=== PATIENT | male | born 1990 | race Caucasian/White ===

== ENCOUNTER 2020-11-16 22:12 | Emergency (ER) | payer OTHER ==
[2020-11-16 22:21] VITALS: BP 147/88; PULSE 104; TEMP 98.9; BMI 32.5
[2020-11-16] MEDS ORDERED: SODIUM CHLORIDE 0.9% 500 ML INFUS.BAG IV ONE (23:09)
[2020-11-16] MEDS ORDERED: LIDOCAINE VISCOUS 2% ORAL/TOP 20 ML UNIT-DOSE CUP MM ONE (23:20)
[2020-11-16] MEDS ORDERED: BUPIVACAINE 0.5% /EPI 1:200,000 10 ML VIAL INF ONE (23:22)
[2020-11-16] MEDS ORDERED: LIDOCAINE VISCOUS 2% ORAL/TOP 20 ML UNIT-DOSE CUP ONE (23:26)
[2020-11-16 23:33] LABS: BASO % 1.5 % (0-2.0); EOS % 1.2 % (0-4.5); HEMATOCRIT 38.5 % (35.4-49); HEMOGLOBIN 12.8 GM/dL (11.7-16.9); LYMPH % 39.9 % (8-40); MCH 28.2 pg (25.7-33.7); MCHC 33.3 g/dl (32.0-35.9); MEAN CELL VOLUME 84.6 fl (80-96); MEAN PLT VOLUME 7.8 fl (7.5-11.1); MONO % 6.8 % (3.8-10.2); NEUT % 50.6 % (42.8-82.8); PLATELET COUNT 287 10^3/uL (134-434); RBC 4.56 M/mm3 (4.00-5.60); RDW 15.3 % (11.9-15.9)
[2020-11-16] MEDS ORDERED: BUPIVACAINE HCL/PF 0.5% (5MG/ML) 10 ML VIAL ONE (23:37)
[2020-11-16] MEDS ORDERED: BUPIVACAINE HCL 0.25% 125 MG/50 ML VIAL INF ONE (23:37)
[2020-11-16] MEDS ORDERED: AMPICILLIN NA/SULBACTAM NA 3 GM in SODIUM CHLORIDE 100 ML IVPB ONE (23:43)
[2020-11-16] MEDS ORDERED: AMPICILLIN NA/SULBACTAM NA 1.5 GM in SODIUM CHLORIDE 100 ML IVPB ONE (23:45)
[2020-11-16 23:52] LABS: CHLORIDE 110 mmol/L (98-107); SODIUM 138 mmol/L (136-145)
[2020-11-16 23:54] LABS: CALCIUM 8.3 mg/dL (8.5-10.1)
[2020-11-16 23:55] LABS: ALBUMIN 3.4 g/dl (3.4-5.0); BLOOD UREA NITROGEN 13.7 mg/dL (7-18); CO2 25 mmol/L (21-32); GLUCOSE,RANDOM 90 mg/dL (74-106)
[2020-11-16 23:58] LABS: CREATININE 0.8 mg/dL (0.55-1.3); SGOT/AST 61 U/L (15-37); SGPT/ALT 32 U/L (13-61)
[2020-11-16 23:59] LABS: BILIRUBIN,TOTAL 0.3 mg/dL (0.2-1)
[2020-11-17 00:01] LABS: ALK PHOS 79 U/L (45-117)
[2020-11-17 01:56] LABS: ANION GAP 4 MMOL/L (8-16)
== END 2020-11-17 00:37 | disposition home or self-care (01) ==
LOC: JER 22:12
DX: K08.89 Other specified disorders of teeth and supporting structures (principal)
CPT/HCPCS: 36415; 80053; 85025; 99284-25